=== PATIENT | female | born 1990 | race Caucasian/White ===

== ENCOUNTER 2023-03-27 13:01 | Inpatient (IN) ==
[2023-03-27] MEDS ORDERED: PENICILLIN GK 6 MU in DEXTROSE 5% 250 ML IV STA ×2 (14:02→19:37)
[2023-03-27] MEDS ORDERED: LIDOCAINE 1% LOCAL 20 ML VIAL INFIL PRN (14:02)
[2023-03-27] MEDS ORDERED: OXYTOCIN 30 UNITS/NSS 30 UNITS/500 ML BAG IV PRN ×2 (14:02→14:08)
[2023-03-27 14:48] LABS: Hematocrit (blood only) 35.7 % (37.0-47.0); Hemoglobin 12.1 g/dl (12.0-16.0); Mean Corpuscular Hemoglobin 31.5 pg (25.0-34.0); Mean Corpuscular Hgb Conc 33.9 g/dL (32.0-36.0); Mean Platelet Volume 10.6 fL (9.4-12.4); Platelet Count 192 K/uL (130-400); RDW Coefficient of Variation 13.3 % (11.5-14.5); RDW Standard Deviation 45.1 fL (36.4-46.3); Red Blood Count 3.84 M/uL (4.20-5.40); White Blood Count 8.56 K/ul (4.8-10.8)
--- NOTE | 2023-03-27 15:07 | History & Physical Report ---
Date of Service March 27, 2023 Assessment & Plan (1) Polyhydramnios affecting in third trimester: (2) Pyelectasis of fetus on ultrasound: (3) MTHFR deficiency complicating : (4) Group beta Strep positive: Plan 32 yo at 39 wga presents for IOL for polyhydramnios VSS Fetus cat 1 -On admission, BSUS demonstrates baby to be transverse HML, similar to where baby was 2 weeks ago. Was cephalic yesterday. Discussed version with attempt at induction if successful and CS if unsuccessful, also discussed primary CS. Discussed risks and benefits of each, likelihood of success, possibility of success but fetus becoming malpositioned again during induction process. Pt desires to proceed with CS -Discussed indications, risks, benefits, alternatives with risks including infection, bleeding, injury to adjacent structures (bowel, bladder, ureters, blood vessels, nerves, baby), possible need for blood transfusion and/or life saving hysterectomy, VTE. Consent reviewed in detail w/ pt and signed after all questions answered to her satisfaction. -inquired regarding btl, pt has partial medicaid coverage. Did speak to surg nurse who had spoke to billing, they told her that her primary should cover it but if it doesn't and medicaid doesn't cover it, the hospital may be able to. Discussed this w/ pt and , is scheduled for vasectomy consult next month, they will defer btl. Admission and Anticipated Discharge Date Admission Date: March 27, 2023 History of Present Illness Chief Complaint: IOL Primary Care Provider: Marleni Hannah, 32 yo at 39 wga presented for IOL for polyhydramnios. +FM; denies ctx, LOF, VB PNI: Suspected LGA Hx thrombophlebitis Polyhydramnios short int BMI > 35 pyelectasis Del. Date GA wks Lbr Lgth wt Sex Type del Anes Place Del Prov ? Comment 04/03/12 41 24 8-[address] [facility] N IOL post dates 04/13/14 Aborted-Spontaneous 02/02/16 39 24 7-12 F Epid ural [facility] N IOL elective nuchal cord 01/01/18 39 10 8-5 F Epidu ral [facility] N elective IOL 07/21/20 39 10 7-10 M None Other [facility] N 12/25/21 39 10 8-4 F None Other [facility] N elective IOL Allergies Allergy/AdvReac Type Severity Reaction Status Date / Time topiramate [From Topamax] AdvReac Intermediate Anxiety Verified 03/26/23 11:33 Home Medications Medication Instructions Recorded Confirmed Type aspirin [Baby Aspirin] 81 mg PO DAILY 09/07/22 03/27/23 History omeprazole [Prilosec] PO 09/07/22 03/26/23 History [id number] fum-folic ac-om3 PO 09/07/22 03/26/23 History [One Daily ] Patient History Medical History (Updated 03/27/23 @ 13:24 by Bridgette Murry, ADRIEL) MTHFR (methylene THF reductase) deficiency and homocystinuria Gallstone History of chicken pox Thrombophlebitis Surgical History S/P wisdom tooth extraction S/P tonsillectomy and adenoidectomy S/P cholecystectomy Family History Aunt Breast cancer Deep vein thrombosis Father Diabetes Mother Thyroid disease Sister Thyroid disease Gestational diabetes Family/Other Juvenal-Fady syndrome cousin Denies family history of Ovarian cancer Colorectal cancer Social History Smoking Status: Never smoker Do You Dip or Chew Tobacco: No; Hx Alcohol Use: No Hx Substance Use: No Preferred Language: Divehi Communication Ability: Effective Member Service Specialist Required: No Beliefs That Will Affect Care: None marital status: marital status details: Roman Dailey(31) [phone] Current Living Situation: Spouse Current Living Situation Comment: lives with spouse, children, outside cats, dogs current occupational status: unemployed current occupation: homemaker Other Information That Helps Us Care for You: No Feels Safe at Home: Yes Safety Concerns: Feels Safe At This Time Physical Exam Genitourinary: OB Exam Abdomen: + transverse (HML) OB Exam Monitor Tracing: + external FHT monitor used, + external uterine monitor used and + category I Results & Data Vital Signs (Past 12 Hours) Vital Signs Temp Pulse Resp BP 03/27/23 13:45 20 03/27/23 13:45 98.2 F 20 03/27/23 13:26 98.2 F 20 03/27/23 13:19 109 H 135/65 Laboratory Results OB Labs: Blood Type A Positive 09/10/22 Antibody Screen NEGATIVE 09/10/22 Hemoglobin 11.5 g/dl (12.0-16.0) L 01/14/23 Hematocrit 33.6 % (37.0-47.0) L 01/14/23 Mean Corpuscular Volume 89.0 fL (80.0-100.0) 09/10/22 Platelet Count 275 K/uL (130-400) 09/10/22 Rubella IgG Antibody Immune (Immune) 09/10/22 Rapid Plasma Reagin Nonreactive (Nonreactive) 09/10/22 Hepatitis B Surface Antigen. NON-REACTIVE (NON-REACTIVE) 09/10/22 Hepatitis C Antibody (EIA) NON-REACTIVE (NON-REACTIVE) 09/10/22 HIV (1&2) Ag and Ab Confirmation NON-REACTIVE (NON-REACTIVE) 09/10/22 Glucose 1 Hour 50 gm Load 175 mg/dl (70-130) H 01/14/23 OB Optional Labs: Chlamydia trachomatis RNA Not Detected (NotDetected) 09/10/22 Neisseria gonorrhoeae RNA Not Detected (NotDetected) 09/10/22 Labs Reviewed: Declines genetics--mln declined msafp smp GBS+ Diagnostic Findings 03/26 DVP 8.7, cephalic 03/05 EFW 95%, ant plac Code Status & VTE Plan VTE Prophylaxis Plan VTE Prophylaxis will be ordered: Yes Coding Level of Care Code None Diagnoses Polyhydramnios affecting in third trimester O40.3XX0 Pyelectasis of fetus on ultrasound O35.EXX0 MTHFR deficiency complicating O99.280; E72.12 Group beta Strep positive B95.1
[2023-03-27] MEDS: LACTATED RINGER'S 1,000 ML IV PRN ×2 (15:41→20:18)
[2023-03-27] MEDS ORDERED: SODIUM CHLORIDE 0.9% 250 ML IV PRN (15:42)
[2023-03-27] MEDS ORDERED: CITRIC ACID/SODIUM CITRATE 15 ML UDC ONE (15:57)
[2023-03-27] MEDS ORDERED: PENICILLIN GK 3 MU in DEXTROSE 5% 100 ML IV PRN ×2 (17:02→22:38)
--- NOTE | 2023-03-27 19:30 | Anesthesiology Consultation ---
Date of Service March 27, 2023 Assessment & Plan Chart Review Chart Review: Acceptable Risk for Surgery Consults Requested none History Surgery Operation Date: 03/27/23 17:00 Proposed Procedures p Section in LD - Almaz Salinas MD Height/Weight Height: 5 ft 2 in Weight: 117.027 kg Allergies Allergy/AdvReac Type Severity Reaction Status Date / Time topiramate [From Topamax] AdvReac Intermediate Anxiety Verified 03/26/23 11:33 Medications Home Medications Medication Instructions Recorded Confirmed Last Taken aspirin [Baby Aspirin] 81 mg PO DAILY 09/07/22 03/27/23 03/26/23 omeprazole [Prilosec] PO 09/07/22 03/26/23 Unknown [id number] fum-folic ac-om3 PO 09/07/22 03/26/23 Unknown [One Daily ] Active Medications Generic Name Dose Route Start Last Admin Trade Name Freq PRN Reason Stop Dose Admin Citric Acid/Sodium Citrate 30 ml 03/28/23 06:00 03/27/23 16:10 Citric Acid/Sodium Citrate 15 Ml Udc PO 03/28/23 06:01 30 ml PREOP SARAHI Administration Lactated Ringer's 1,000 mls @ 125 mls/hr 03/27/23 14:02 03/27/23 15:41 Lr IV 03/29/23 14:01 999 mls/hr .Q8H PRN Administration L&D Protocol Protocol NPO Date Last Intake of Fluids: 03/27/23 Time Last Intake of Fluids: 10:30 Date Last Intake of Solids: 03/27/23 Time Last Intake of Solids: 10:30 Past Medical History Medical History (Updated 03/27/23 @ 13:24 by Bridgette Murry, ADRIEL) MTHFR (methylene THF reductase) deficiency and homocystinuria Gallstone History of chicken pox Thrombophlebitis Past Family History Family History Aunt Breast cancer Deep vein thrombosis Father Diabetes Mother Thyroid disease Sister Thyroid disease Gestational diabetes Family/Other Juvenal-Fady syndrome cousin Denies family history of Ovarian cancer Colorectal cancer Past Surgical History Surgical History S/P wisdom tooth extraction S/P tonsillectomy and adenoidectomy S/P cholecystectomy Social History Smoking Status: Never smoker Do You Dip or Chew Tobacco: No Hx Alcohol Use: No Hx Substance Use: No substance use type: does not use Physical Exam Vital Signs Last Vital Signs Temp 36.8 C 03/27/23 19:05 Pulse 91 H 03/27/23 19:00 Resp 18 03/27/23 19:05 BP 122/56 L 03/27/23 19:00 Pulse Ox 97 03/27/23 17:04 Testing Laboratory Results 03/27/23 14:14 Blood Type A Positive 03/27/23 14:14 Antibody Screen NEGATIVE 03/27/23 14:14
[2023-03-27] MEDS ORDERED: LACTATED RINGER'S 500 ML IV PRN (19:35)
[2023-03-27] MEDS ORDERED: KETOROLAC 30 MG/ML VIAL IV PRN (19:35)
[2023-03-27] MEDS ORDERED: MEPERIDINE HCL 25 MG/ML CARP/VIAL IV PRN (19:35)
[2023-03-27] MEDS ORDERED: NALOXONE HCL 1 MG in SODIUM CHLORIDE 0.9% 1,000 ML IV PRN ×2 (19:35→20:44)
[2023-03-27] MEDS ORDERED: NALOXONE HCL 0.08 MG in SYRINGE 1.8 ML IV PRN (19:35)
[2023-03-27] MEDS ORDERED: diphenhydrAMINE 50 MG/ML VIAL IV PRN ×2 (19:35→20:44)
[2023-03-27] MEDS ORDERED: ONDANSETRON INJ 2 MG/ML 2 ML VIAL IV PRN (19:35)
[2023-03-27] MEDS ORDERED: METOCLOPRAMIDE HCL 10 MG in SODIUM CHLORIDE 0.9% 50 ML IV PRN (19:35)
[2023-03-27] MEDS ORDERED: NALOXONE HCL 0.4 MG/1 ML VIAL/CARP IV PRN ×2 (19:35→20:44)
[2023-03-27] MEDS ORDERED: MoRPHine SULFATE PF 1 MG/ML 10 ML AMP/VIAL INT SPINAL ONE (19:35)
[2023-03-27] MEDS ORDERED: NALBUPHINE HCL 5 MG in SYRINGE 0 ML IV PRN ×2 (19:35→20:44)
[2023-03-27] MEDS ORDERED: MoRPHine SULFATE 2 MG/ML CARP IV PRN (19:35)
[2023-03-27] MEDS ORDERED: PROMETHAZINE HCL 12.5 MG in SODIUM CHLORIDE 0.9% 50 ML IV PRN (19:35)
[2023-03-27] MEDS ORDERED: HYDROmorphone INJ 0.5 MG/0.5 ML SYR IV PRN (19:35)
[2023-03-27] MEDS ORDERED: ePHEDrine sulfate 50 MG/ML AMP ONE (19:42)
[2023-03-27] MEDS ORDERED: fentaNYL citrate PF 100 MCG/2 ML VIAL ONE ×2 (19:42→23:25)
[2023-03-27] MEDS ORDERED: SODIUM CHLORIDE 0.9% PF INJ 10 ML VIAL ONE (19:42)
[2023-03-27] MEDS ORDERED: fentANYL 2 MCG/ML BUPIVacaine 0.125%-NSS 100ML BAG ONE (19:42)
[2023-03-27] MEDS ORDERED: BUPIVACAINE 0.25% PF 30 ML VIAL ONE (19:43)
[2023-03-27] MEDS ORDERED: LIDOCAINE 2%/EPINEPHRINE 1:200,000 20 ML PF ONE ×2 (19:43→23:27)
[2023-03-27] MEDS ORDERED: NO NARCOTICS OR SEDATIVES SCH (19:45)
[2023-03-27] MEDS ORDERED: DC INTRASPINAL MORPHINE SCH (19:45)
[2023-03-27] MEDS ORDERED: SODIUM CHLORIDE 0.9% 1,000 ML IV SCH (19:45)
[2023-03-27] MEDS: ePHEDrine sulfate 50 MG/ML AMP IV PRN ×2 (20:14→20:16)
--- NOTE | 2023-03-27 20:35 | Communication Note ---
Date of Service: March 27, 2023 CS delayed due to emergent patient care elsewhere given stability of pt and baby. When planned to go back for CS, US was performed demonstrate cephalic position. Pt desired to attempt vaginal delivery. Abdominal binder was placed and penicillin started. SVE by additional provider who was present due to other patient care was /-3. She received an epidural and Will start pitocin to try to help contractions until AROM
[2023-03-27] MEDS ORDERED: fentaNYL citrate PF 100 MCG/2 ML VIAL EPI STA (20:44)
[2023-03-27] MEDS ORDERED: BUPIVACAINE 0.25% PF 30 ML VIAL EPI PRN (20:44)
[2023-03-27] MEDS ORDERED: ROPIVACAINE 0.5% PF 5 MG/ML 20 ML VIAL EPI PRN (20:44)
[2023-03-27] MEDS ORDERED: ePHEDrine sulfate 50 MG/ML AMP IV PRN (20:44)
[2023-03-27] MEDS ORDERED: LIDOCAINE 2%/EPINEPHRINE 1:200,000 20 ML PF EPI STA (20:44)
[2023-03-27] MEDS ORDERED: LIDOCAINE 2% MPF LOCAL 5 ML VIAL EPI PRN (20:44)
[2023-03-27] MEDS ORDERED: SODIUM CHLORIDE 0.9% PF INJ 10 ML VIAL EPI PRN (20:44)
[2023-03-27] MEDS ORDERED: fentANYL 2 MCG/ML BUPIVacaine 0.125%-NSS 100ML BAG EPI PRN (20:44)
[2023-03-27] MEDS ORDERED: SODIUM CHLORIDE 0.9% PF INJ 10 ML VIAL EPI STA (20:44)
[2023-03-27] MEDS ORDERED: BUPIVACAINE 0.25% PF 30 ML VIAL EPI STA (20:44)
[2023-03-27] MEDS ORDERED: fentaNYL citrate PF 100 MCG/2 ML VIAL EPI PRN (20:44)
[2023-03-27] MEDS ORDERED: AZITHROMYCIN 500 MG in DEXTROSE 5% 250 ML IV STA (23:15)
--- NOTE | 2023-03-27 23:22 | Labor Progress Brief Note ---
Date of Service March 27, 2023 Subjective comfortable w/ epidural Assessment & Plan (1) Polyhydramnios affecting in third trimester: (2) Pyelectasis of fetus on ultrasound: (3) MTHFR deficiency complicating : (4) Group beta Strep positive: Plan head was palpated at time of arom however large gush of fluid occurred and with it, head felt like it moved and baby became transverse. FHR appr opriate, given now transverse, will proceed to OR. CS consent previously signed earlier, will do ancef and azithro. Anesthesia made aware Admission and Anticipated Discharge Date Admission Date: March 27, 2023 Physical Exam Genitourinary: Manual OB Exam: + cervical dilation 4 cm, + cervical effacement 50% and + station -2 OB Exam Monitor Tracing: + external FHT monitor used, + external uterine monitor used and + category I On initial check, head was palpated and felt to be engaged to attempt arom. With arom, large gush of fluid occurred and could feel head start moving and then felt like I was palpating torso. US immediately obtained and head noted in transverse HML again. Results & Data Vital Signs (Past 12 Hours) Vital Signs Temp Pulse Resp BP Pulse Ox 03/27/23 23:11 97 03/27/23 23:11 112 H 03/27/23 23:10 112 H 03/27/23 23:10 141/65 H 03/27/23 23:06 99 03/27/23 23:06 98 H 03/27/23 23:01 98 03/27/23 23:01 106 H 03/27/23 22:57 103 H 03/27/23 22:57 141/63 H 03/27/23 22:56 92 03/27/23 22:56 98 H 03/27/23 22:51 95 03/27/23 22:51 96 H 03/27/23 22:46 95 03/27/23 22:46 96 H 03/27/23 22:41 95 03/27/23 22:41 112 H 03/27/23 22:40 108 H 03/27/23 22:40 137/63 03/27/23 22:36 96 03/27/23 22:36 110 H 03/27/23 22:31 18 03/27/23 22:31 18 03/27/23 22:31 94 03/27/23 22:31 101 H 03/27/23 22:26 95 03/27/23 22:26 109 H 03/27/23 22:26 133/60 03/27/23 22:21 96 03/27/23 22:21 98 H 03/27/23 22:17 92 03/27/23 22:17 101 H 03/27/23 22:16 96 03/27/23 22:16 105 H 03/27/23 22:11 97 03/27/23 22:11 114 H 03/27/23 22:10 108 H 03/27/23 22:10 138/65 03/27/23 22:06 95 03/27/23 22:06 102 H 03/27/23 22:01 18 03/27/23 22:01 18 03/27/23 22:01 95 03/27/23 22:01 112 H 03/27/23 21:56 95 03/27/23 21:56 115 H 03/27/23 21:55 102 H 03/27/23 21:55 141/66 H 03/27/23 21:51 96 03/27/23 21:51 104 H 03/27/23 21:46 97 03/27/23 21:46 105 H 03/27/23 21:41 97 03/27/23 21:41 103 H 03/27/23 21:41 105 H 03/27/23 21:41 136/65 03/27/23 21:36 97 03/27/23 21:36 108 H 03/27/23 21:31 18 03/27/23 21:31 18 03/27/23 21:31 97 03/27/23 21:31 95 H 03/27/23 21:28 94 03/27/23 21:28 100 H 03/27/23 21:26 97 03/27/23 21:26 88 03/27/23 21:25 107 H 03/27/23 21:25 132/54 L 03/27/23 21:21 98 03/27/23 21:21 101 H 03/27/23 21:16 97 03/27/23 21:16 101 H 03/27/23 21:11 96 03/27/23 21:11 95 H 03/27/23 21:10 111 H 03/27/23 21:10 138/63 03/27/23 21:06 97 03/27/23 21:06 98 H 03/27/23 21:01 98 03/27/23 21:01 110 H 03/27/23 21:01 142/61 H 03/27/23 21:00 18 03/27/23 21:00 18 03/27/23 20:56 99 03/27/23 20:56 90 03/27/23 20:55 111 H 03/27/23 20:55 156/68 H 03/27/23 20:51 99 03/27/23 20:51 101 H 03/27/23 20:46 98 03/27/23 20:46 107 H 03/27/23 20:45 18 03/27/23 20:45 18 03/27/23 20:41 100 03/27/23 20:41 109 H 03/27/23 20:40 109 H 03/27/23 20:40 134/62 03/27/23 20:36 100 03/27/23 20:36 114 H 03/27/23 20:36 135/61 03/27/23 20:31 100 03/27/23 20:31 103 H 03/27/23 20:30 18 03/27/23 20:30 18 03/27/23 20:26 100 03/27/23 20:26 99 H 03/27/23 20:23 96 H 03/27/23 20:23 138/67 03/27/23 20:21 18 03/27/23 20:21 18 03/27/23 20:21 100 03/27/23 20:21 96 H 03/27/23 20:21 146/59 H 03/27/23 20:19 83 03/27/23 20:19 143/69 H 03/27/23 20:17 75 03/27/23 20:17 129/57 L 03/27/23 20:16 18 03/27/23 20:16 18 03/27/23 20:16 98 03/27/23 20:16 73 03/27/23 20:15 66 03/27/23 20:15 102/49 L 03/27/23 20:13 83 03/27/23 20:13 99/55 L 03/27/23 20:11 18 03/27/23 20:11 18 03/27/23 20:11 96 03/27/23 20:11 93 H 03/27/23 20:11 108/54 L 03/27/23 20:09 98 H 03/27/23 20:09 121/58 L 03/27/23 20:08 120 H 03/27/23 20:08 133/60 03/27/23 20:06 99 03/27/23 20:06 125 H 03/27/23 20:05 18 03/27/23 20:05 18 03/27/23 20:05 112 H 03/27/23 20:05 110/95 03/27/23 20:01 97 03/27/23 20:01 99 H 03/27/23 19:56 96 03/27/23 19:56 99 H 03/27/23 19:51 98 03/27/23 19:51 100 H 03/27/23 19:46 98 03/27/23 19:46 96 H 03/27/23 19:05 98.2 F 18 03/27/23 19:00 20 03/27/23 19:00 20 03/27/23 19:00 91 H 03/27/23 19:00 122/56 L 03/27/23 18:30 20 03/27/23 18:30 20 03/27/23 18:00 20 03/27/23 18:00 20 03/27/23 17:30 20 03/27/23 17:30 20 03/27/23 17:04 97 03/27/23 17:04 88 03/27/23 16:59 98 03/27/23 16:59 105 H 03/27/23 16:54 97 03/27/23 16:54 88 03/27/23 16:49 96 03/27/23 16:49 93 H 03/27/23 16:44 97 03/27/23 16:44 84 03/27/23 16:39 98 03/27/23 16:39 90 03/27/23 16:34 97 03/27/23 16:34 88 03/27/23 16:30 20 03/27/23 16:30 20 03/27/23 16:29 98 03/27/23 16:29 91 H 03/27/23 16:24 97 03/27/23 16:24 89 03/27/23 16:19 98 03/27/23 16:19 96 H 03/27/23 16:14 98 03/27/23 16:14 90 03/27/23 15:30 20 03/27/23 15:30 20 03/27/23 13:45 20 03/27/23 13:45 98.2 F 20 03/27/23 13:26 98.2 F 03/27/23 13:19 109 H 135/65 Coding Level of Care Code None Diagnoses Polyhydramnios affecting in third trimester O40.3XX0 Pyelectasis of fetus on ultrasound O35.EXX0 MTHFR deficiency complicating O99.280; E72.12 Group beta Strep positive B95.1
[2023-03-28] MEDS ORDERED: MoRPHine SULFATE PF 1 MG/ML 10 ML AMP/VIAL ONE (00:02)
[2023-03-28] MEDS ORDERED: OXYTOCIN 10 UNITS/ML VIAL ONE ×3 (00:02→00:30)
[2023-03-28] MEDS ORDERED: ePHEDrine sulfate 50 MG/5 ML SYR ONE (00:22)
[2023-03-28] MEDS ORDERED: NALOXONE HCL 0.08 MG in SYRINGE 1.8 ML IV PRN (00:43)
[2023-03-28] MEDS ORDERED: ePHEDrine sulfate 50 MG/ML AMP IV PRN (00:43)
[2023-03-28] MEDS ORDERED: MoRPHine SULFATE PF 1 MG/ML 10 ML AMP/VIAL INT SPINAL ONE (00:43)
[2023-03-28] MEDS ORDERED: HYDROmorphone INJ 0.5 MG/0.5 ML SYR IV PRN (00:43)
[2023-03-28] MEDS ORDERED: ONDANSETRON INJ 2 MG/ML 2 ML VIAL IV PRN ×2 (00:43→18:43)
[2023-03-28] MEDS ORDERED: METOCLOPRAMIDE HCL 10 MG in SODIUM CHLORIDE 0.9% 50 ML IV PRN (00:43)
[2023-03-28] MEDS ORDERED: LACTATED RINGER'S 500 ML IV PRN (00:43)
[2023-03-28] MEDS ORDERED: NALBUPHINE HCL 5 MG in SYRINGE 0 ML IV PRN (00:43)
[2023-03-28] MEDS ORDERED: MEPERIDINE HCL 25 MG/ML CARP/VIAL IV PRN (00:43)
[2023-03-28] MEDS ORDERED: MoRPHine SULFATE 2 MG/ML CARP IV PRN (00:43)
[2023-03-28] MEDS ORDERED: PROMETHAZINE HCL 12.5 MG in SODIUM CHLORIDE 0.9% 50 ML IV PRN (00:43)
[2023-03-28] MEDS ORDERED: NALOXONE HCL 0.4 MG/1 ML VIAL/CARP IV PRN (00:43)
[2023-03-28] MEDS ORDERED: NALOXONE HCL 1 MG in SODIUM CHLORIDE 0.9% 1,000 ML IV PRN (00:43)
[2023-03-28] MEDS ORDERED: NO NARCOTICS OR SEDATIVES SCH (00:45)
[2023-03-28] MEDS ORDERED: SODIUM CHLORIDE 0.9% 1,000 ML IV SCH (00:45)
[2023-03-28] MEDS ORDERED: DC INTRASPINAL MORPHINE SCH (00:45)
[2023-03-28] MEDS ORDERED: ONDANSETRON INJ 2 MG/ML 2 ML VIAL ONE (00:47)
--- NOTE | 2023-03-28 01:20 | Anesthesia Procedure Note ---
Date of Service March 28, 2023 Anesthesia Post Epidural Note Vital Signs Vital Signs: Temp Pulse Resp BP Pulse Ox 36.8 C 88 18 116/57 L 97 03/27/23 19:05 03/28/23 01:17 03/27/23 22:31 03/28/23 01:13 03/28/23 01:17 Notes Mental Status: alert / awake / arousable Nausea / Vomiting: adequately controlled Pain: adequately controlled Airway Patency, RR, SpO2: stable & adequate BP & HR: stable & adequate Hydration State: stable & adequate Neuraxial Anesthesia: was administered and sensory block is resolving Anesthetic Complications: no major complications apparent and Pt Satisfied with anesthetic care Epidural: Removed without complications and With tip intact
--- NOTE | 2023-03-28 01:24 | Operative Report ---
PG Post Operative Report Pre & Post Diagnosis Operation Date: 03/27/23 23:10 Pre-Op Diagnosis: IUP at 39 weeks; polyhydramnios; unstable lie Post-Op Diagnosis: IUP at 39 weeks; polyhydramnios; unstable lie I identified the patient and participated in the time-out.: Yes Procedure Operation Date: 03/27/23 23:10 Actual Procedures p Primary Low Transverse Section in - Almaz Salinas MD Surgeon Almaz Salinas MD Patient Support Representative ADRIEL Perez Estimated Blood Loss 800 Findings Consistent with Post-Op Diagnosis Gravid uterus with areas of inflammation, normal appearing bilateral fallopian tubes and ovaries. Viable male weighing 9lb 12 oz with apgars of 7 and 9 Fluids 1200cc crystalloid, UOP 200cc by calloway catheter Specimens Placenta, cord blood, cord gases Drains Calloway draining clear urine Anesthesia Type L&D Only Epidural Exists Complications none Disposition Accompanied Patient To Recovery: Yes Disposition: L&D Indications 32 yo presented for induction of labor for polyhydramnios and suspected LGA. Baby was cephalic yesterday however transverse today. She was counseled regarding options and desired to proceed with . Prior to , fetus was found to be cephalic so she desired induction. She received an epidural for pain control and penicillin and pitocin were started. Once contraction pattern was noted, she was checked and palpated and felt to be appropriate for arom. As gush occurred, head palpably moved. US confirmed return to transverse position. Due to this, was recommended Description of Procedure The patient was taken to the operating room after consents were ensured. The patient was properly identified. Epidural anesthesia was bolused without difficulty. The patient was placed in a dorsal supine position with left lateral tilt, then prepped and draped in normal sterile fashion. Surgical time out was performed. Antibiotics were given for prophylaxis. Anesthesia was tested to ensure adequate surgical levels. Pfannenstiel skin incision was performed and carried down to the underlying fascia with a knife. The fascia was then nicked in the midline and extended laterally with pickups and Moseley scissors. Superior portion of the fascia was grasped with Kochers x2 and elevated off the underlying rectus muscles using blunt dissection. Inferior portion of the fascia was then grasped with Urbano clamps x2 and also elevated off the underlying muscles with blunt dissection. Midline was identified. The peritoneum was then entered and extended to provide adequate room for delivery of baby. A hand was inserted into the abdomen, uterus was noted to be clear of adhesions. Bladder blade was inserted, bladder flap was created in the usual fashion. A low transverse uterine incision was made in the uterus and extended bluntly in a superior to inferior fashion. Clear fluid at the time of entry. Fetus was transverse back up at this time. arm initially delivered spontaneously but was replaced. feet were able to be grasped and delivered through the hysterotomy atraumatically. breech and torso were delivered to the level of the shoulders. Moist towel was wrapped around the torso and arms swept across the chest atraumatically. Head delivered spontaneously afterward. Nose and mouth were bulb suctioned on the surgical field. The cord was double clamped and cut, baby was handed off to awaiting pediatrics staff. Cord segment and blood were obtained. Placenta was then expressed from the uterus. The uterus was exteriorized. Several passes were made inside the uterus to remove the remaining membranes. Attention was then turned to the hysterotomy, which was then closed with a running locked suture of 0 Vicryl on a CTX needle. An imbricating layer was then performed using 0-Monocryl. Due to thickness of uterus, additional imbricating layer was performed. There was noted to be good hemostasis. The posterior cul-de-sac was then inspected and cleaned of clot and debris. The hysterotomy was again inspected and noted to be hemostatic. There was noted to be an area of inflammation on uterus posteriorly that was made hemostatic with floseal. The uterus was returned to the abdomen. The right and left pericolic gutters were cleaned of all clot and debris. The hysterotomy was again noted to be hemostatic. Space of Retzius was noted to be hemostatic. The fascia was then closed with a running suture of 0 Vicryl on a CT1 needle. Subcutaneous tissue was copiously irrigated and noted to be hemostatic. Subcutaneous tissue was re- approximated using 2-0 plain gut. The skin was then closed with a running suture of 3-0 Monocryl in a subcuticular fashion. At termination of the procedure, fundal pressure was applied and a moderate amount of lochia was expressed. Pressure dressing was applied to the patient. She tolerated the procedure well. All sponge, needle, instrument counts were correct x 2. I attest to the content of the Intraoperative Record and any orders documented therein. Any exceptions are noted below. OB Procedure Charges 06113
[2023-03-28] MEDS ORDERED: DIPHTHERIA/TETANUS/PERTUSSIS Vaccine (Tdap, Age 7+yrs) 0.5mL SYR/VL IM ONE (01:29)
[2023-03-28] MEDS ORDERED: OXYTOCIN 20 UNITS/LR 1,002 ML IV SCH (01:29)
[2023-03-28] MEDS ORDERED: MAGNESIUM HYDROXIDE SUSP 30 ML UDC PO PRN (01:29)
[2023-03-28] MEDS ORDERED: BENZOCAINE 20% SPRY 85 APPLN/85 GM CAN EXT PRN (01:29)
[2023-03-28] MEDS ORDERED: HYDROCORTISONE ACETATE 25 MG SUPP PR PRN (01:29)
[2023-03-28] MEDS ORDERED: SENNA 8.6 MG TAB PO PRN (01:29)
[2023-03-28] MEDS: KETOROLAC 30 MG/ML VIAL IV PRN ×3 (01:42→15:44)
--- NOTE | 2023-03-28 05:52 | Anesthesiology Progress Note ---
Date of Service March 28, 2023 Anesthesia Post Procedure Vital Signs Vital Signs: Temp Pulse Pulse Resp BP BP Pulse Ox 03/28/23 05:15 36.8 C 89 18 105/66 03/28/23 05:10 18 92 03/28/23 04:56 18 03/28/23 04:18 92 H 88 L 03/28/23 04:13 88 89 L 03/28/23 04:08 86 90 03/28/23 04:03 106 H 120/56 L 94 03/28/23 03:58 91 H 90 03/28/23 03:53 90 89 L 03/28/23 03:48 92 H 87 L 03/28/23 03:43 91 H 89 L 03/28/23 03:38 90 89 L 03/28/23 03:33 101 H 89 L 03/28/23 03:28 92 H 90 03/28/23 03:23 92 H 91 03/28/23 03:18 88 90 03/28/23 03:13 87 91 03/28/23 03:08 84 95 03/28/23 03:06 94 H 94 03/28/23 03:05 36.8 C 18 03/28/23 03:03 100 H 95 03/28/23 03:00 101 H 94 03/28/23 02:59 101 H 117/57 L 03/28/23 02:58 103 H 95 03/28/23 02:54 100 H 94 03/28/23 02:53 102 H 93 03/28/23 02:48 103 H 94 03/28/23 02:47 102 H 94 03/28/23 02:43 98 H 93 03/28/23 02:38 100 H 95 03/28/23 02:36 99 H 94 03/28/23 02:35 18 03/28/23 02:33 94 H 95 03/28/23 02:32 91 H 113/53 L 03/28/23 02:31 92 H 94 03/28/23 02:28 103 H 96 03/28/23 02:24 91 H 120/56 L 03/28/23 02:23 89 94 03/28/23 02:22 95 H 95 03/28/23 02:17 92 H 95 03/28/23 02:15 98 H 94 03/28/23 02:12 96 H 95 03/28/23 02:10 97 H 94 03/28/23 02:07 91 H 95 03/28/23 02:05 18 03/28/23 02:04 95 H 94 03/28/23 02:03 94 H 108/55 L 03/28/23 02:02 96 H 97 03/28/23 01:57 91 H 97 03/28/23 01:55 18 03/28/23 01:54 93 H 103/53 L 03/28/23 01:52 95 H 96 03/28/23 01:47 92 H 96 03/28/23 01:45 18 03/28/23 01:43 88 106/59 L 03/28/23 01:42 90 98 03/28/23 01:37 91 H 97 03/28/23 01:35 18 03/28/23 01:34 89 93/55 L 03/28/23 01:32 98 H 98 03/28/23 01:27 97 H 97 03/28/23 01:25 18 03/28/23 01:23 92 H 116/57 L 03/28/23 01:22 103 H 97 03/28/23 01:17 88 97 03/28/23 01:15 36.9 C 18 03/28/23 01:13 95 H 116/57 L 03/28/23 01:12 97 H 97 03/27/23 23:37 111 H 03/27/23 23:37 116/57 L 03/27/23 23:36 98 03/27/23 23:36 103 H 03/27/23 23:33 102 H 03/27/23 23:33 137/60 03/27/23 23:31 97 03/27/23 23:31 102 H 03/27/23 23:26 96 03/27/23 23:26 93 H 03/27/23 23:25 91 H 03/27/23 23:25 142/61 H 03/27/23 23:21 95 03/27/23 23:21 93 H 03/27/23 23:16 97 03/27/23 23:16 92 H 03/27/23 23:11 97 03/27/23 23:11 112 H 03/27/23 23:10 112 H 03/27/23 23:10 141/65 H 03/27/23 23:06 99 03/27/23 23:06 98 H 03/27/23 23:01 98 03/27/23 23:01 106 H 03/27/23 22:57 103 H 03/27/23 22:57 141/63 H 03/27/23 22:56 92 03/27/23 22:56 98 H 03/27/23 22:51 95 03/27/23 22:51 96 H 03/27/23 22:46 95 03/27/23 22:46 96 H 03/27/23 22:41 95 03/27/23 22:41 112 H 03/27/23 22:40 108 H 03/27/23 22:40 137/63 03/27/23 22:36 96 03/27/23 22:36 110 H 03/27/23 22:31 18 03/27/23 22:31 18 03/27/23 22:31 94 03/27/23 22:31 101 H 03/27/23 22:26 95 03/27/23 22:26 109 H 03/27/23 22:26 133/60 03/27/23 22:21 96 03/27/23 22:21 98 H 03/27/23 22:17 92 03/27/23 22:17 101 H 03/27/23 22:16 96 03/27/23 22:16 105 H 03/27/23 22:11 97 03/27/23 22:11 114 H 03/27/23 22:10 108 H 03/27/23 22:10 138/65 03/27/23 22:06 95 03/27/23 22:06 102 H 03/27/23 22:01 18 03/27/23 22:01 18 03/27/23 22:01 95 03/27/23 22:01 112 H 03/27/23 21:56 95 03/27/23 21:56 115 H 03/27/23 21:55 102 H 03/27/23 21:55 141/66 H 03/27/23 21:51 96 03/27/23 21:51 104 H 03/27/23 21:46 97 03/27/23 21:46 105 H 03/27/23 21:41 97 03/27/23 21:41 103 H 03/27/23 21:41 105 H 03/27/23 21:41 136/65 03/27/23 21:36 97 03/27/23 21:36 108 H 03/27/23 21:31 18 03/27/23 21:31 18 03/27/23 21:31 97 03/27/23 21:31 95 H 03/27/23 21:28 94 03/27/23 21:28 100 H 03/27/23 21:26 97 03/27/23 21:26 88 03/27/23 21:25 107 H 03/27/23 21:25 132/54 L 03/27/23 21:21 98 03/27/23 21:21 101 H 03/27/23 21:16 97 03/27/23 21:16 101 H 03/27/23 21:11 96 03/27/23 21:11 95 H 03/27/23 21:10 111 H 03/27/23 21:10 138/63 03/27/23 21:06 97 03/27/23 21:06 98 H 03/27/23 21:01 98 03/27/23 21:01 110 H 03/27/23 21:01 142/61 H 03/27/23 21:00 18 03/27/23 21:00 18 03/27/23 20:56 99 03/27/23 20:56 90 03/27/23 20:55 111 H 03/27/23 20:55 156/68 H 03/27/23 20:51 99 03/27/23 20:51 101 H 03/27/23 20:46 98 03/27/23 20:46 107 H 03/27/23 20:45 18 03/27/23 20:45 18 03/27/23 20:41 100 03/27/23 20:41 109 H 03/27/23 20:40 109 H 03/27/23 20:40 134/62 03/27/23 20:36 100 03/27/23 20:36 114 H 03/27/23 20:36 135/61 03/27/23 20:31 100 03/27/23 20:31 103 H 03/27/23 20:30 18 03/27/23 20:30 18 03/27/23 20:26 100 03/27/23 20:26 99 H 03/27/23 20:23 96 H 03/27/23 20:23 138/67 03/27/23 20:21 18 03/27/23 20:21 18 03/27/23 20:21 100 03/27/23 20:21 96 H 03/27/23 20:21 146/59 H 03/27/23 20:19 83 03/27/23 20:19 143/69 H 03/27/23 20:17 75 03/27/23 20:17 129/57 L 03/27/23 20:16 18 03/27/23 20:16 18 03/27/23 20:16 98 03/27/23 20:16 73 03/27/23 20:15 66 03/27/23 20:15 102/49 L 03/27/23 20:13 83 03/27/23 20:13 99/55 L 03/27/23 20:11 18 03/27/23 20:11 18 03/27/23 20:11 96 03/27/23 20:11 93 H 03/27/23 20:11 108/54 L 03/27/23 20:09 98 H 03/27/23 20:09 121/58 L 03/27/23 20:08 120 H 03/27/23 20:08 133/60 03/27/23 20:06 99 03/27/23 20:06 125 H 03/27/23 20:05 18 03/27/23 20:05 18 03/27/23 20:05 112 H 03/27/23 20:05 110/95 03/27/23 20:01 97 03/27/23 20:01 99 H 03/27/23 19:56 96 03/27/23 19:56 99 H 03/27/23 19:51 98 03/27/23 19:51 100 H 03/27/23 19:46 98 03/27/23 19:46 96 H 03/27/23 19:05 36.8 C 18 03/27/23 19:00 20 03/27/23 19:00 20 03/27/23 19:00 91 H 03/27/23 19:00 122/56 L 03/27/23 18:30 20 03/27/23 18:30 20 03/27/23 18:00 20 03/27/23 18:00 20 03/27/23 17:30 20 03/27/23 17:30 20 03/27/23 17:04 97 03/27/23 17:04 88 03/27/23 16:59 98 03/27/23 16:59 105 H 03/27/23 16:54 97 03/27/23 16:54 88 03/27/23 16:49 96 03/27/23 16:49 93 H 03/27/23 16:44 97 03/27/23 16:44 84 03/27/23 16:39 98 03/27/23 16:39 90 03/27/23 16:34 97 03/27/23 16:34 88 03/27/23 16:30 20 03/27/23 16:30 20 03/27/23 16:29 98 03/27/23 16:29 91 H 03/27/23 16:24 97 03/27/23 16:24 89 03/27/23 16:19 98 03/27/23 16:19 96 H 03/27/23 16:14 98 03/27/23 16:14 90 03/27/23 15:30 20 03/27/23 15:30 20 03/27/23 13:45 20 03/27/23 13:45 36.8 C 20 03/27/23 13:26 36.8 C 20 03/27/23 13:19 109 H 135/65 Pain Intensity Bilateral Lower Abdomen: Pain Intensity: 6 Transfer of Care Handoff Completed per policy Notes Mental Status: alert / awake / arousable and participated in evaluation Nausea / Vomiting: adequately controlled Pain: adequately controlled Airway Patency, RR, SpO2: stable & adequate BP & HR: stable & adequate Hydration State: stable & adequate Neuraxial Anesthesia: was administered and sensory block is resolving Anesthetic Complications: no major complications apparent and Pt Satisfied with anesthetic care
[2023-03-28] MEDS: diphenhydrAMINE 50 MG/ML VIAL IV PRN ×2 (05:56→11:44)
[2023-03-28] MEDS ORDERED: CITRIC ACID/SODIUM CITRATE 15 ML UDC PO SCH (06:00)
[2023-03-28 06:27] LABS: Base Excess Cord Arterial Bld -4.5 mEq/L (-9-1.8); Base Excess Cord Venous Blood -2.9 mEq/L (-7.7-1.9); CO2 Cord Arterial Blood 70 mmHg (39.1-73.5); Cord Venous Blood HCO3 25 mmol/L (18.4-26.8); Cord Venous Blood PCO2 54 mmHg (30.4-57.2); Cord Venous Blood PO2 < 20 mmHg (14.1-43.3); Cord Venous Blood pH 7.27 (7.20-7.44); HCO3 Cord Arterial Blood 26 mmol/L (19.7-28.5); O2 Saturation Cord Venous Bld < 60.0 % (<68); Oxygen Sat Cord Arterial Blood < 60.0 % (<60); PO2 Cord Arterial Blood < 20 mmHg (4.1-31.7); pH Cord Arterial Blood 7.17 (7.1-7.38)
[2023-03-28] MEDS: SIMETHICONE 80 MG CHEW PO SCH ×4 (08:17→20:36)
[2023-03-28] MEDS: DOCUSATE SODIUM 100 MG CAP PO SCH ×2 (08:17→20:36)
[2023-03-28] MEDS: PRENATAL VITAMIN 1 TAB PO SCH (08:18)
[2023-03-28] MEDS: FERROUS SULFATE 325 MG TAB PO SCH (08:18)
[2023-03-28] MEDS ORDERED: LACTATED RINGER'S 1,000 ML IV SCH (09:30)
[2023-03-28] MEDS: ENOXAPARIN INJ 40 MG/0.4 ML SYR SQ SCH (13:29)
[2023-03-28] MEDS ORDERED: diphenhydrAMINE Capsule 25 MG CAP PO PRN (18:43)
[2023-03-28] MEDS ORDERED: KETOROLAC 30 MG/ML VIAL IV PRN (18:43)
[2023-03-28] MEDS ORDERED: PROMETHAZINE HCL 25 MG in SODIUM CHLORIDE 0.9% 50 ML IV PRN (18:43)
[2023-03-28] MEDS ORDERED: diphenhydrAMINE 50 MG/ML VIAL IV PRN (18:43)
[2023-03-28] MEDS: oxyCODONE/ACETAMINOPHEN 5mg/325mg TAB PO PRN (20:35)
[2023-03-28] MEDS: IBUPROFEN 600 MG TAB PO PRN (20:36)
[2023-03-29] MEDS: oxyCODONE/ACETAMINOPHEN 5mg/325mg TAB PO PRN ×5 (01:15→20:19)
[2023-03-29] MEDS: IBUPROFEN 600 MG TAB PO PRN ×5 (01:15→20:19)
[2023-03-29] MEDS: ENOXAPARIN INJ 40 MG/0.4 ML SYR SQ SCH ×2 (03:43→18:02)
[2023-03-29 06:00] LABS: Basophils # (auto) 0.02 K/uL (0.00-0.20); Basophils % (auto) 0.2 %; Eosinophils # (auto) 0.07 K/uL (0.00-0.50); Eosinophils % (auto) 0.8 %; Hematocrit (blood only) 29.6 % (37.0-47.0); Hemoglobin 9.6 g/dl (12.0-16.0); Immature Granulocytes # (auto) 0.05 K/uL (0.01-0.20); Immature Granulocytes % (auto) 0.6 %; Lymphocytes # (auto) 2.08 K/uL (1.20-3.40); Lymphocytes % (auto) 23.9 %; Mean Corpuscular Hemoglobin 31.4 pg (25.0-34.0); Mean Corpuscular Hgb Conc 32.4 g/dL (32.0-36.0); Mean Corpuscular Volume 96.7 fL (80.0-100.0); Mean Platelet Volume 10.2 fL (9.4-12.4); Monocytes % (auto) 6.9 %; Neutrophils % (auto) 67.6 %; Platelet Count 152 K/uL (130-400); RDW Coefficient of Variation 13.6 % (11.5-14.5); RDW Standard Deviation 48.4 fL (36.4-46.3); Red Blood Count 3.06 M/uL (4.20-5.40); White Blood Count 8.72 K/ul (4.8-10.8)
--- NOTE | 2023-03-29 07:04 | Obstetrical Progress Note ---
Date of Service <Yadi Casiano MD - Last Filed: 03/29/23 07:25> March 29, 2023 Assessment & Plan <Yadi Casiano MD - Last Filed: 03/29/23 07:25> (1) Encounter for care after hospital delivery: (2) Status post primary low transverse section: Plan Patient with the above mentioned history and findings was evaluated at bedside and found awake, alert, oriented in all spheres, afebrile, and in no acute distress. Vital signs showed no fever and blood pressures remained stable. Her blood type is A positive and today's hemoglobin is adequate at 9.6 g/dL. She is GBS positive treated intrapartum and rubella immune. Overall, patient is doing well clinically. Will continue routine pp care. All questions were answered. <Scott Salgado MD - Last Filed: 04/01/23 10:36> (1) Encounter for care after hospital delivery: (2) Status post primary low transverse section: Subjective <Yadi Casiano MD - Last Filed: 03/29/23 07:25> Beatriz is a 32y/o female who is now POD #1 following primary LTCS at 39+ weeks due to baby position (transverse). Reports feeling well overall this morning. Refers mild abdominal cramping & 3/10 pain well managed on analgesics. Voiding spontaneously. Has passed flatus but no bowel movements yet. Tolerating meals overnight and able to ambulate some. Some persistent lochia with some improvement this morning. . Constitutional: no fever, no chills or no sweats Denies shortness of breath or difficulty breathing. Cardiovascular: no chest pain or no palpitations Breast: no breast pain Genitourinary (female): no dysuria Neurologic: no headache(s) Denies changes in vision. Physical Exam <Yadi Casiano MD - Last Filed: 03/29/23 07:25> General: Alert. Oriented to person, time, and place. Afebrile. No acute distress. Eyes: pupils equal and reactive to light bilaterally, extraocular movements intact. Cardiac: Regular rate and rhythm, no murmurs/rubs/gallops. Respiratory: Clear to auscultation bilaterally, no wheezes/rales/rhonchi. No increased work of breathing. Symmetrical chest rise. No respiratory distress. Abdomen: Soft, nontender, nondistended. Bowel sounds present. Low transverse surgical scar clean, without surrounding erythema or suppuration, and healing well. Uterus: Uterine fundus firm, mildly tender, palpable below umbilicus. Lower Extremities: No lower extremity edema or swelling. No deep calf pain. Dave's negative bilaterally. Psych: Euthymic affect. Mood and affect congruence. Regular speech rate and content. Results & Data <Yadi Casiano MD - Last Filed: 03/29/23 07:25> Vital Signs (Past 12 Hours) Vital Signs Temp Pulse Resp BP Pulse Ox O2 Del Method 03/29/23 06:30 108/65 03/29/23 01:10 36.7 C 73 18 98/65 L Room Air 03/28/23 20:30 37.1 C 94 H 20 107/66 95 Room Air 03/28/23 20:30 Room Air Supervising Physician <Scott Salgado MD - Last Filed: 04/01/23 10:36> Co-Signing Physician Notes Patient seen with resident and agree with the above findings and plan. Routine care. Resident Activity Tracking <Yadi Casiano MD - Last Filed: 03/29/23 07:25> Resident Involvement: Resident Care Provided Care Provided: OB Delivery
[2023-03-29] MEDS: DOCUSATE SODIUM 100 MG CAP PO SCH ×2 (09:27→20:19)
[2023-03-29] MEDS: SIMETHICONE 80 MG CHEW PO SCH ×4 (09:27→20:19)
[2023-03-29] MEDS: PRENATAL VITAMIN 1 TAB PO SCH (09:27)
[2023-03-29] MEDS: FERROUS SULFATE 325 MG TAB PO SCH (09:27)
[2023-03-29] MEDS ORDERED: bisacodyL 5 MG TABEC PO SCH (20:00)
[2023-03-30] MEDS: oxyCODONE/ACETAMINOPHEN 5mg/325mg TAB PO PRN ×6 (00:19→21:00)
[2023-03-30] MEDS: IBUPROFEN 600 MG TAB PO PRN ×6 (00:20→20:59)
[2023-03-30] MEDS ORDERED: bisacodyL 10 MG SUPP PR PRN (01:13)
[2023-03-30] MEDS: ENOXAPARIN INJ 40 MG/0.4 ML SYR SQ SCH ×2 (06:09→18:04)
[2023-03-30 06:41] LABS: Hemoglobin 10.2 g/dl (12.0-16.0)
--- NOTE | 2023-03-30 07:43 | Obstetrical Progress Note ---
Date of Service <Yadi Casiano MD - Last Filed: 03/30/23 07:43> March 30, 2023 Assessment & Plan <Yadi Casiano MD - Last Filed: 03/30/23 07:43> (1) Encounter for care after hospital delivery: (2) Status post primary low transverse section: Plan Patient with the above mentioned history and findings was evaluated at bedside and found awake, alert, oriented in all spheres, afebrile, and in no acute distress. Vital signs showed no fever and blood pressures remained stable. Her blood type is A positive and today's hemoglobin is adequate at 10.2 g/dL. She is GBS positive treated intrapartum and rubella immune. Overall, patient is doing well clinically. Will continue routine pp care. If she remains, stable, anticipate discharge tomorrow. All questions were answered. <Briseyda Husain MD, FACOG - Last Filed: 03/30/23 07:50> (1) Encounter for care after hospital delivery: (2) Status post primary low transverse section: Subjective <Yadi Casiano MD - Last Filed: 03/30/23 07:43> Beatriz is a 32y/o female who is now POD #2 following primary LTCS at 39+ weeks due to baby position (transverse). Reports feeling well overall this morning. Refers mild abdominal cramping & 2/10 pain well managed on analgesics. Voiding spontaneously. Has passed flatus but no bowel movements yet. Tolerating meals overnight and able to ambulate some. Some persistent lochia with some improvement this morning. . Constitutional: no fever, no chills or no sweats Denies shortness of breath or difficulty breathing. Cardiovascular: no chest pain or no palpitations Breast: no breast pain Genitourinary (female): no dysuria Neurologic: no headache(s) Denies changes in vision. Physical Exam <Yadi Casiano MD - Last Filed: 03/30/23 07:43> General: Alert. Oriented to person, time, and place. Afebrile. No acute distress. Eyes: pupils equal and reactive to light bilaterally, extraocular movements intact. Cardiac: Regular rate and rhythm, no murmurs/rubs/gallops. Respiratory: Clear to auscultation bilaterally, no wheezes/rales/rhonchi. No increased work of breathing. Symmetrical chest rise. No respiratory distress. Abdomen: Soft, nontender, nondistended. Bowel sounds present. Low transverse surgical scar clean, without surrounding erythema or suppuration, and healing well. Uterus: Uterine fundus firm, mildly tender, palpable below umbilicus. Lower Extremities: No lower extremity edema or swelling. No deep calf pain. Dave's negative bilaterally. Psych: Euthymic affect. Mood and affect congruence. Regular speech rate and content. Results & Data <Yadi Casiano MD - Last Filed: 03/30/23 07:43> Vital Signs (Past 12 Hours) Vital Signs Temp Pulse Resp BP Pulse Ox O2 Del Method 03/29/23 23:02 37.1 C 79 18 104/69 97 Room Air 03/29/23 20:40 Room Air Supervising Physician <Briseyda Husain MD, FACOG - Last Filed: 03/30/23 07:50> Co-Signing Physician Notes Resident Physician Supervision Note: I interviewed and examined the patient. Discussed with Dr. Casiano and agree with findings and plan as documented in the note. Any exceptions or clarifications are listed here: [None] Documented By: Briseyda Husain MD, FACOG
[2023-03-30] MEDS: PRENATAL VITAMIN 1 TAB PO SCH (09:24)
[2023-03-30] MEDS: DOCUSATE SODIUM 100 MG CAP PO SCH ×2 (09:24→20:59)
[2023-03-30] MEDS: FERROUS SULFATE 325 MG TAB PO SCH (09:24)
[2023-03-30] MEDS: SIMETHICONE 80 MG CHEW PO SCH ×4 (09:24→20:59)
[2023-03-31] MEDS: oxyCODONE/ACETAMINOPHEN 5mg/325mg TAB PO PRN ×3 (01:30→11:09)
[2023-03-31] MEDS: IBUPROFEN 600 MG TAB PO PRN ×3 (01:31→11:09)
[2023-03-31] MEDS: ENOXAPARIN INJ 40 MG/0.4 ML SYR SQ SCH (06:25)
[2023-03-31] MEDS: DOCUSATE SODIUM 100 MG CAP PO SCH (08:18)
[2023-03-31] MEDS: SIMETHICONE 80 MG CHEW PO SCH (08:18)
[2023-03-31] MEDS: FERROUS SULFATE 325 MG TAB PO SCH (08:18)
[2023-03-31] MEDS: PRENATAL VITAMIN 1 TAB PO SCH (08:18)
--- NOTE | 2023-03-31 08:49 | Obstetrical Progress Note ---
Date of Service March 31, 2023 Assessment & Plan (1) Status post primary low transverse section: Postoperative from section patient meets discharge criteria as she is ambulating well tolerating an oral diet has minimal bleeding and no extremity pain. Discharge instructions were reviewed and prescriptions were sent to her pharmacy of choice patient advised to call with any concerns and follow-up in the office discussed Incision cdi Subjective Ambulation: ambulating normally Voiding: no voiding problems Passing Gas:: Yes Diet Tolerance:: regular diet Lochia:: Small Physical Exam Constitutional WD/WN, vitals as above well developed and well nourished Respiratory normal respiratory effort; no respiratory distress, no retractions and does not use accessory muscles Cardiovascular RRR, no murmur, no edema Chest (Breasts) normal inspection/palpation of breasts Breast: normal inspection of breasts, normal inspection of axillae, normal palpation of breasts and normal palpation of axillae Gastrointestinal (Abdomen) normal bowel sounds, soft, nontender, no hepatosplenomegaly Neurologic awake; not confused Genitourinary no vaginal lesions, no adnexal mass normal external appearance Speculum/Bimanual Exam: normal bimanual exam, normal appearance of the vagina and normal appearance of the cervix Results & Data Vital Signs (Past 12 Hours) Vital Signs Temp Pulse Resp BP Pulse Ox O2 Del Method 03/31/23 00:44 98.2 F 84 18 105/69 97 Room Air
--- NOTE | 2023-04-01 05:55 | Coding Query ---
CODING QUERY To promote full compliance with coding requirements relating to patient care, provider participation is requested in all cases of senior linux unix engineer uncertainty. Please assist us with the question(s) below: Coding Question(s): The Operative Report for the Primary Low Transverse Section shows the date of the procedure as 03/27/23, however the EMR shows the date of delivery to be 03/28/23. Please specify below, the date of the Primary Low Transverse Section: (X ) 03/28/23 -procedure was started just before midnight, delivery was 00:13 on 03/28/23 ( ) 03/27/23 ( ) Other: Please Specify Physician's Response(s): Thank you Celia Souza Principal Diagnosis: "that condition established after study, to be chiefly responsible for occasioning the admission of the patient to the hospital for care." Co-Existing Principal Diagnosis: "when two or more diagnoses equally meet the criteria for principal diagnosis as determined by the circumstances of admission, diagnostic work up, and/or therapy provided, and the Alphabetic Index, Tabular List, or another coding guideline does not provide sequencing direction, any one of the diagnoses may be sequenced first." "When the physician has documented what appears to be a current diagnosis in the body of the record, but has not included the diagnosis in the final diagnostic statement, the physician should be asked whether the diagnosis should be added." (Source [facility] 2 QTR90. p3-4) TOVA
--- NOTE | 2023-04-02 08:30 | Discharge Summary ---
Date of Service April 02, 2023 Admission HPI Per Admitting Provider 32 yo at 39 wga presented for IOL for polyhydramnios. +FM; denies ctx, LOF, VB PNI: Suspected LGA Hx thrombophlebitis Polyhydramnios short int BMI > 35 pyelectasis Del. Date GA wks Lbr Lgth wt Sex Type del Anes Place Del Prov ? Comment 04/03/12 41 24 8-5 M None Other [facility] N IOL post dates 04/13/14 Aborted-Spontaneous 02/02/16 39 24 7-12 F Epid ural Other [facility] N IOL elective nuchal cord 01/01/18 39 10 8-5 F Epidu ral [facility] N elective IOL 07/21/20 39 10 7-10 M None Other [facility] N 12/25/21 39 10 8-4 F None Other [facility] elective IOL Admission Exam (Per Admitting) Genitourinary OB Exam Abdomen: + transverse (HML) Manual OB Exam: + cervical dilation + 4 cm, + cervical effacement + 50% and + station + -2 OB Exam Monitor Tracing: + external FHT monitor used, + external uterine monitor used and + category I Discharge Data Consultations 03/27/23 14:02 Consult Anesthesiology Stat Procedures Performed Operation Date: 03/27/23 23:10 Actual Procedures p Section in - Almaz Salinas MD Hospital Course (1) Encounter for care after hospital delivery: (2) Status post primary low transverse section: Plan 32 yo presented for induction of labor for polyhydramnios and suspected LGA. Baby was cephalic yesterday however transverse today. She was counseled regarding options and desired to proceed with . Prior to , fetus was found to be cephalic so she desired induction. She received an epidural for pain control and penicillin and pitocin were started. Once contraction pattern was noted, she was checked and palpated and felt to be appropriate for arom. As gush occurred, head palpably moved. US confirmed return to transverse position. Due to this, was recommended. See op report for details. Postop course was uncomplicated and she was discharged home on pod3 Coding Level of Care Code None Diagnoses Encounter for care after hospital delivery Z39.2 Status post primary low transverse section Z98.891
== END 2023-03-31 11:50 | disposition home or self-care (01) | DRG 787 ==
LOC: 4S1 13:01 → 4E2 03-28 05:03
DX: O26.893 Other specified pregnancy related conditions, third trimester; E72.12 Methylenetetrahydrofolate reductase deficiency; O28.3 Abnormal ultrasonic finding on antenatal screening of mother; Z79.899 Other long term (current) drug therapy; O99.824 Streptococcus B carrier state complicating childbirth; O40.3XX0 Polyhydramnios, third trimester, not applicable or unspecified; O36.63X0 Maternal care for excessive fetal growth, third trimester, not applicable or unspecified; O32.2XX0 Maternal care for transverse and oblique lie, not applicable or unspecified; O99.284 Endocrine, nutritional and metabolic diseases complicating childbirth; Z3A.39 39 weeks gestation of pregnancy; Z79.82 Long term (current) use of aspirin; Z88.8 Allergy status to other drugs, medicaments and biological substances; Z37.0 Single live birth